=== PATIENT | female | born 2000 | race Caucasian/White ===

== ENCOUNTER → 2023-07-27 08:24 | Outpatient (CLI) | payer OTHER, SELFPAY ==
[2023-07-27 18:12] LABS: Alanine Aminotransferase 19 IU/L (<35); Albumin 4.2 g/dL (3.5-5.0); Albumin Globulin Ratio 1.3 (1.0-2.8); Alkaline Phosphatase 43 U/L (38-126); Aspartate Aminotransferase 26 IU/L (14-36); BUN Creatinine Ratio 19.3 (6-22); Bilirubin Total 0.8 mg/dL (0.2-1.3); Blood Urea Nitrogen 11 mg/dL (7-17); Carbon Dioxide 25 mmol/L (22-32); Chloride 103 mmol/L (98-107); Estimated Glomerular Filt Rate > 60 mL/min (>60); Globulin 3.2 g/dL (1.7-4.1); Glucose 102 mg/dL (70-100); HEMOLYSIS < 15 (0-50); Potassium 4.4 mmol/L (3.4-5.1); Sodium 137 mmol/L (137-145); Total Protein 7.4 g/dL (6.3-8.2)
[2023-07-27 18:20] LABS: Add Manual Diff / Slide Review NO; Basophils Absolute Auto 0 /uL (0-100); Basophils Percent Auto 0.7 % (0-2); Eosinophils Absolute Auto 200 /uL (0-450); Eosinophils Percent Auto 2.6 % (2-4); Hematocrit 40.6 % (36-46); Hemoglobin 13.9 g/dL (12.0-16.0); Lymphocytes Absolute Auto 1900 /uL (1100-4500); Lymphocytes Percent Auto 28.7 % (25-40); Mean Corpuscular HGB Conc 34.1 % (30-36); Mean Corpuscular Hemoglobin 29.9 PG (26-34); Mean Corpuscular Volume 87.5 fL (80-100); Monocytes Absolute Auto 500 /uL (0-900); Monocytes Percent Auto 7.9 % (3-14); Neutrophils Absolute Auto 3900 /uL (1500-7000); Neutrophils Percent Auto 60.1 % (50-75); Platelet Count 336 X10^3/uL (150-400); Red Blood Cell Count 4.64 X10^6/uL (4.0-5.2); Red Cell Distribution Width 13.3 % (11.6-14.8); White Blood Cell Count 6.5 X10^3/uL (4.5-11.0)
[2023-07-27 18:41] LABS: TSH w/ Reflex to FT4 1.75 uIU/mL (0.47-4.68)
== END ==
PROVIDERS: PCP Physician Assistant Medical; Visit Provider Physician Assistant Medical
DX: R22.1 Localized swelling, mass and lump, neck (principal); E03.9 Hypothyroidism, unspecified
CPT/HCPCS: 80053; 84443; 84481; 85025

== ENCOUNTER → 2023-08-10 15:15 | Outpatient (CLI) | payer SELFPAY ==
--- NOTE | 2023-08-10 15:19 | DI.US.S_ITS ---
PROCEDURE: US THYROID INDICATIONS: Localized swelling, mass and lump, neck TECHNIQUE: Real-time scanning was performed of the thyroid gland, with image documentation. COMPARISON: None. FINDINGS: Right: Thyroid lobe measures 4.5 x 2.3 x 1.6 cm, and is heterogeneous in echotexture. Left: Thyroid lobe measures 2.5 x 1.3 x 1.1 cm, and is heterogeneous in echotexture. Isthmus: 2 mm thick. Nodule number: 1 Location: Right mid Size: 1.9 x 1.5 x 1.6 cm. Composition: Solid Echogenicity: Hypoechoic Shape: wider than tall. Margins: Smooth Echogenic foci: Non Total points: 4 ACR TI-RADS category: 4 IMPRESSION: 1. A 1.9 x 1.5 x 1.6 cm solid hypoechoic nodule in the mid right thyroid lobe. ACR TI RADS category 4. Consider fine-needle aspiration biopsy. 2. Thyroid gland has heterogeneous echotexture. Please correlate with thyroid function tests. ACR TI-RADS definitions and recommendations: TI-RADS 1 (benign): 0 points. FNA not needed. TI-RADS 2 (not suspicious): 2 points. FNA not needed. TI-RADS 3 (mildly suspicious): 3 points. * FNA if 2.5 cm or larger, follow up if 1.5 cm or larger (at 1, 3, and 5 years). TI-RADS 4 (moderately suspicious): 4-6 points. * FNA if 1.5 cm or larger, follow up if 1 cm or larger (at 1, 2, 3, and 5 years). TI-RADS 5 (highly suspicious): 7 points or more. * FNA if 1 cm or larger, follow up if 0.5 cm or larger (every year for 5 years). Dictated by: Salvador Taylor M.D. on 08/10/2023 at 17:12 Approved by: Salvador Taylor M.D. on 08/10/2023 at 17:14
== END ==
PROVIDERS: PCP Physician Assistant Medical; Referring Provider Physician Assistant Medical; Visit Provider Physician Assistant Medical
DX: E04.1 Nontoxic single thyroid nodule (principal); E03.9 Hypothyroidism, unspecified; R22.1 Localized swelling, mass and lump, neck
CPT/HCPCS: 76536

== ENCOUNTER → 2023-11-01 14:30 | Outpatient (CLI) | payer OTHER, SELFPAY ==
[2023-11-01 19:30] LABS: Add Manual Diff / Slide Review NO; Basophils Absolute Auto 0 /uL (0-100); Basophils Percent Auto 0.5 % (0-2); Eosinophils Absolute Auto 100 /uL (0-450); Eosinophils Percent Auto 1.4 % (2-4); Hematocrit 42.3 % (36-46); Hemoglobin 14.4 g/dL (12.0-16.0); Lymphocytes Absolute Auto 1400 /uL (1100-4500); Lymphocytes Percent Auto 23.3 % (25-40); Mean Corpuscular Hemoglobin 29.3 PG (26-34); Mean Corpuscular Volume 86.1 fL (80-100); Monocytes Absolute Auto 600 /uL (0-900); Monocytes Percent Auto 9.4 % (3-14); Neutrophils Absolute Auto 4000 /uL (1500-7000); Neutrophils Percent Auto 65.4 % (50-75); Platelet Count 235 X10^3/uL (150-400); Red Blood Cell Count 4.91 X10^6/uL (4.0-5.2); Red Cell Distribution Width 13.7 % (11.6-14.8); White Blood Cell Count 6.1 X10^3/uL (4.5-11.0)
[2023-11-01 19:34] LABS: BUN Creatinine Ratio 20.6 (6-22); Blood Urea Nitrogen 14 mg/dL (7-17); Calcium 9.5 mg/dL (8.4-10.2); Carbon Dioxide 26 mmol/L (22-32); Chloride 100 mmol/L (98-107); Estimated Glomerular Filt Rate > 60 mL/min (>60); Glucose 91 mg/dL (70-100); HEMOLYSIS < 15 (0-50); Potassium 4.2 mmol/L (3.4-5.1); Sodium 135 mmol/L (137-145)
[2023-11-01 19:44] LABS: Free T4, Direct Thyroxine 1.05 ng/dL (0.78-2.19)
[2023-11-03 22:33] LABS: Anti Thyroglobulin Antibody <1.0 IU/mL (0.0-0.9)
[2023-11-06 09:48] LABS: Parathyroid Hormone Int 29 pg/mL (15-65)
[2023-11-13 01:08] LABS: Thyroglobulin Level 38 ng/mL (.)
== END ==
PROVIDERS: PCP Physician Assistant Medical; Visit Provider Surgery
DX: E04.1 Nontoxic single thyroid nodule (principal)
CPT/HCPCS: 80048; 83970; 84432; 84439; 85025; 86800

== ENCOUNTER → 2023-12-24 13:54 | Outpatient (CLI) | payer OTHER, SELFPAY ==
[2023-12-24 19:58] LABS: Thyroid Stimulating Hormone 2.85 uIU/mL (0.47-4.68)
[2023-12-26 21:06] LABS: Thyroglobulin Antibodies < 1.0 IU/mL (0.0-0.9)
== END ==
PROVIDERS: PCP Physician Assistant Medical
DX: E89.0 Postprocedural hypothyroidism (principal); D49.7 Neoplasm of unspecified behavior of endocrine glands and other parts of nervous system
CPT/HCPCS: 84432; 84443; 86800

== ENCOUNTER → 2024-06-04 11:52 | Outpatient (CLI) | payer OTHER, SELFPAY ==
[2024-06-04 21:13] LABS: Thyroid Stimulating Hormone 2.38 uIU/mL (0.47-4.68)
[2024-06-06 20:08] LABS: Anti Thyroglobulin Antibody <1.0 IU/mL (0.0-0.9)
[2024-06-29 15:05] LABS: Miscellaneous to LabCorp 11.2
== END ==
PROVIDERS: PCP Physician Assistant Medical; Visit Provider Nurse Practitioner
DX: E89.0 Postprocedural hypothyroidism (principal); D49.7 Neoplasm of unspecified behavior of endocrine glands and other parts of nervous system
CPT/HCPCS: 84432; 84443; 86800

== ENCOUNTER → 2024-06-06 09:51 | Outpatient (CLI) | payer OTHER, SELFPAY ==
--- NOTE | 2024-06-06 09:52 | DI.US.S_ITS ---
PROCEDURE: US THYROID INDICATIONS: Postprocedural hypothyroidism TECHNIQUE: Real-time scanning was performed of the thyroid gland, with image documentation. COMPARISON: [facility], , US THYROID, 08/10/2023, 15:26. FINDINGS: Thyroid: Status post right tawnya thyroidectomy. No abnormal nodularity in the right postsurgical bed. Left lobe measures 4.6 x 1.4 x 0.9 cm. The echotexture is heterogenous but slightly hypervascular. No nodularity. IMPRESSION: 1. Status post right hemithyroidectomy without abnormal nodularity in the postsurgical bed. 2. Mild hypervascularity of the left thyroid gland, possibly secondary to compensatory activity. Dictated by: Markie Auguste M.D. on 06/06/2024 at 15:29 Approved by: Markie Auguste M.D. on 06/06/2024 at 15:32
== END ==
PROVIDERS: PCP Physician Assistant Medical; Referring Provider Nurse Practitioner; Visit Provider Nurse Practitioner
DX: E89.0 Postprocedural hypothyroidism (principal); D49.7 Neoplasm of unspecified behavior of endocrine glands and other parts of nervous system
CPT/HCPCS: 76536